=== PATIENT | female | born 1995 | race Caucasian/White ===

== ENCOUNTER 2020-02-06 12:48 | Outpatient (REF) | payer OTHER, SELFPAY | END 2020-02-06 12:49 | disposition home or self-care (01) | LOC: HO.LAB 12:48 | PROVIDERS: Visit Provider Internal Medicine | DX: Z20.828 Contact with and (suspected) exposure to other viral communicable diseases (principal) | CPT/HCPCS: C9803; U0003 ==

== ENCOUNTER 2020-02-17 20:49 | Emergency (ER) | payer OTHER, SELFPAY ==
[2020-02-17 20:55] VITALS: BP 140/83; PULSE 107; RESP 17; TEMP 37; O2SAT 100; BMI 41.6
== END 2020-02-17 21:10 | disposition left against medical advice (07) ==
PROVIDERS: Emergency Provider Emergency Medicine; PCP Family Medicine
DX: L23.9 Allergic contact dermatitis, unspecified cause (principal)
CPT/HCPCS: 99281; 99282